=== PATIENT | female | born 1960 | race Caucasian/White ===

== ENCOUNTER 2019-12-18 13:49 | Outpatient (CLI) | payer BC, SELFPAY ==
--- NOTE | 2019-12-18 15:24 | XR_ITS ---
WS: [id number] HIP WITH PELVIS RIGHT TECHNIQUE: 3 views of the right hip with pelvis CLINICAL INFORMATION: joint pain COMPARISON: None. FINDINGS: Moderate degenerative narrowing right hip with joint space narrowing. Hypertrophic spurring about the acetabulum. No acute fractures. Normal femoral neck. Normal pubic rami. Pelvic phleboliths. XR/XR hip RT 2-3V wo/w pel* [id number] IMPRESSION: Moderate degenerative arthritis right hip. No acute fractures
--- NOTE | 2019-12-18 15:24 | XR_ITS ---
WS: [id number] KNEE RIGHT TECHNIQUE: 3 views of the right knee CLINICAL INFORMATION: joint pain COMPARISON: None. FINDINGS: Right knee is normal in appearance. No evidence of acute fracture dislocation. Tiny suprapatellar eff usion. Patella is normal. Mild degenerative narrowing at the patellofemoral articulation. XR/XR knee RT 3V* [id number] IMPRESSION: Mild degenerative narrowing at the patellofemoral articulation. Tiny suprapatel lar effusion. No acute fractures.
--- NOTE | 2019-12-18 15:24 | XR_ITS ---
WS: [id number] KNEE LEFT TECHNIQUE: 3 views of the left knee CLINICAL INFORMATION: joint pain COMPARISON: None. FINDINGS: Left knee is normal in appearance. No evidence of acute fracture dislocation. No significant effusion . Hypertrophic patella XR/XR knee LT 3V* [id number] IMPRESSION: Slightly hypertrophic patella. No acute fractures.
== END 2019-12-18 13:50 | disposition home or self-care (01) ==
LOC: RADWPI 13:56
PROVIDERS: Family Provider Nurse Practitioner Family; PCP Emergency Medicine; Visit Provider Emergency Medicine
DX: M25.561 Pain in right knee (principal); M25.562 Pain in left knee; M25.552 Pain in left hip; G89.29 Other chronic pain; M16.11 Unilateral primary osteoarthritis, right hip; M25.461 Effusion, right knee
CPT/HCPCS: 73502; 73562

== ENCOUNTER → 2020-06-28 15:32 | Outpatient (BNVA) | payer BC, SELFPAY | PROVIDERS: Family Provider Nurse Practitioner Family; PCP Emergency Medicine; Visit Provider Nurse Practitioner Family | DX: Z11.59 Encounter for screening for other viral diseases (principal) | CPT/HCPCS: 87635 ==

== ENCOUNTER → 2020-09-12 09:37 | Outpatient (BNVA) | payer BC, SELFPAY | PROVIDERS: Family Provider Nurse Practitioner Family; PCP Emergency Medicine; Referring Provider Nurse Practitioner Family; Visit Provider Orthopaedic Surgery | DX: M17.0 Bilateral primary osteoarthritis of knee (principal); M25.561 Pain in right knee; M25.562 Pain in left knee; G89.29 Other chronic pain | CPT/HCPCS: 73560; 73565 ==